=== PATIENT | female | born 1970 | race Caucasian/White ===

== ENCOUNTER 2018-09-17 22:51 | Inpatient (IN) | payer MEDICAID ==
[~2018-09-17] VITALS: Ht 152.4 cm; Wt 84.0 kg
[2018-09-18] MEDS ORDERED: SOD CHLORIDE 0.9% 1,000 ML IV STA (00:28)
[2018-09-18] MEDS ORDERED: morphine 4 MG/ML VIAL IV STA (00:28)
[2018-09-18] MEDS ORDERED: ONDANSETRON 4 MG INJ IV STA (00:28)
[2018-09-18] MEDS ORDERED: ASPI-817 PO (01:48)
[2018-09-18] MEDS ORDERED: KETOROLAC 30 MG INJ IV STA (02:31)
[2018-09-18] MEDS ORDERED: CEFTRIAXONE 1 GM/50 ML (PMX) 50 ML IVPB ONE (03:00)
[2018-09-18] MEDS ORDERED: ONDANSETRON 4 MG INJ IV PRN (04:00)
[2018-09-18] MEDS ORDERED: HYDROCODONE/APAP (5/325) TAB PO PRN ×2 (04:00)
[2018-09-18] MEDS ORDERED: NACL 0.9% 3 ML SYG IV SCH (04:00)
[2018-09-18] MEDS ORDERED: ACETAMINOPHEN 325 MG TAB PO PRN (04:00)
[2018-09-18] MEDS ORDERED: KETOROLAC 30 MG INJ IV PRN (04:00)
[2018-09-18] MEDS: SOD CHLORIDE 0.9% 1,000 ML IV SCH ×3 (04:43→14:57)
--- NOTE | 2018-09-18 06:06 | HP ---
Date/Time of Note Date/Time of Note DATE: 09/18/18 TIME: 05:56 Assessment/Plan VTE Prophylaxis Pharmacological prophylaxis: heparin Lines/Catheters IV Catheter Type (from Nrsg): Saline Lock Assessment/Plan Assessment/Plan 1. Left ureterolithiasis -IV fluid -Pain management -Flomax -Strain urine -Awaiting urology 2. UTI -IV antibiotic -Follow-up urine culture results -See #1 3. Mildly dilated appendix: No positive CT findings to suggest appendicitis -Monitor for now -Surgical consult as needed 4. Left adnexal cyst, measuring 3 cm -Follow-up ultrasound in 2 weeks Result Diagram: 09/18/189 09/18/18 000 Results 24hrs Laboratory Tests Test 09/18/18 00:09 09/18/18 02:15 White Blood Count 15.0 H Red Blood Count 4.80 Hemoglobin 13.2 Hematocrit 39.7 Mean Corpuscular Volume 82.7 Mean Corpuscular Hemoglobin 27.5 L Mean Corpuscular Hemoglobin Concent 33.2 Red Cell Distribution Width 12.6 Platelet Count 273 Mean Platelet Volume 10.3 Immature Granulocytes % 0.700 H Neutrophils % 86.2 H Lymphocytes % 9.0 L Monocytes % 3.5 Eosinophils % 0.2 Basophils % 0.4 Nucleated Red Blood Cells % 0.0 Immature Granulocytes # 0.100 H Neutrophils # 13.0 H Lymphocytes # 1.4 Monocytes # 0.5 Eosinophils # 0.0 Basophils # 0.1 Nucleated Red Blood Cells # 0.0 Sodium Level 137 Potassium Level 4.0 Chloride Level 100 Carbon Dioxide Level 25 Anion Gap 12 Blood Urea Nitrogen 19 Creatinine 0.83 Est Glomerular Filtrat Rate mL/min > 60 Glucose Level 149 Calcium Level 9.3 Total Bilirubin 0.4 Direct Bilirubin 0.00 Indirect Bilirubin 0.4 Aspartate Amino Transf (AST/SGOT) 20 Alanine Aminotransferase (ALT/SGPT) 20 Alkaline Phosphatase 106 Total Protein 7.9 Albumin 4.5 Globulin 3.40 H Albumin/Globulin Ratio 1.32 Lipase 52 Urine Color STRAW Urine Clarity CLEAR Urine pH 7.0 Urine Specific [place] 1.012 Urine Ketones 1+ H Urine Nitrite NEGATIVE Urine Bilirubin NEGATIVE Urine Urobilinogen NEGATIVE Urine Leukocyte Esterase NEGATIVE Urine Microscopic RBC 71 H Urine Microscopic WBC 2 Urine Mucus FEW A Urine Hemoglobin 2+ H Urine Glucose NEGATIVE Urine Total Protein NEGATIVE HPI/ROS Admit Date/Time Admit Date/Time Hx of Present Illness This is a 47-year-old female with a history of nephrolithiasis who presents the ER complaining of right flank pain since yesterday. Also reported associated nausea. When presented to ER, vitals were stable. Lab shows a WBC of 15,000. UA consistent with UTI. CT abdomen/pelvis shows the followin mm distal right ureter stone proximal to the UVJ with moderate to severe secondary signs of urinary tract obstruction. Additional nonobstructing smaller stones within both kidneys. Mildly dilated appendix measuring up to 10 mm although without periappendiceal fat stranding seen to suggest the presence of acute appendicitis. 3.7 cm left adnexal cyst which appears simple by CT, most likely a physiologic cyst. Ultrasound follow-up is recommended in 6-12 weeks to assess for resolution. PMH/Family/Social Past Medical History Medical History: other (See HPI) Medications Current Medications Sodium Chloride 1,000 ml @ 125 mls/hr Q8H IV Last administered on 09/18/18at 04:43; Admin Dose 125 MLS/HR; Start 09/18/18 at 03:50 IV Flush (NS 3 ml) 3 ml PER PROTOCOL IV ; Start 09/18/18 at 04:00 Ondansetron HCl (Zofran Inj) 4 mg Q6H PRN IV NAUSEA/VOMITING; Start 09/18/18 at 04:00 Acetaminophen (Tylenol Tab) 650 mg Q6H PRN PO .PAIN 1-3 OR TEMP; Start 09/18/18 at 04:00 Acetaminophen/ Hydrocodone Bitart ([place] (5/325)) 1 tab Q6H PRN PO .MOD PAIN 4- 6; Start 09/18/18 at 04:00 Acetaminophen/ Hydrocodone Bitart ([place] (5/325)) 2 tab Q6H PRN PO .SEVERE PAIN 7-10; Start 09/18/18 at 04:00 Heparin Sodium (Porcine) (Heparin (5000 Units/1ml)) 5,000 unit Q12 SC ; Start 09/18/18 at 09:00 Ketorolac Tromethamine (Toradol) 30 mg Q6H PRN IV PAIN; Start 09/18/18 at 04:00; Stop 09/21/18 at 03:59 Tamsulosin HCl (Flomax) 0.4 mg Q24H PO ; Start 09/18/18 at 04:00 Ceftriaxone Sodium 50 ml @ 100 mls/hr DAILY IVPB ; Start 09/19/18 at 03:00 Coded Allergies: No Known Allergy (Unverified , 09/18/18) Past Surgical History Past Surgical Hx: other (See HPI) Family History Significant Family History: no pertinent family hx Social History Alcohol Use: none Smoking Status: Never smoker Drug Use: none Exam/Review of Systems Vital Signs Vitals Vital Signs Date Temp Pulse Resp B/P (MAP) Pulse Ox O2 O2 Flow FiO2 Time Delivery Rate 09/18/18 64 14 102/65 96 Room Air 05:47 (77) 09/17/18 98.7 22:53 Exam Constitutional: alert, oriented, well developed Head: normocephalic, atraumatic Eyes: EOMI, PERRL Respiratory: clear to auscultation, normal air movement Cardiovascular: regular rate and rhythm Gastrointestinal: soft, other (Right flank pain) Extremities: normal pulses AIDEN PRETTY MD Sep 18, 2018 06:06
[2018-09-18 08:03] VITALS: BP 118/58; PULSE 74; RESP 18
[2018-09-18] MEDS: TAMSULOSIN (SR) 0.4 MG CAP PO SCH (09:11)
[2018-09-18] MEDS: HEPARIN 5,000 UNIT/1 ML VIAL SC SCH ×2 (09:14→20:47)
[2018-09-18 10:01] VITALS: Ht 152.4 cm; Wt 84.0 kg
--- NOTE | 2018-09-18 12:38 | PN ---
Date/Time of Note Date/Time of Note DATE: 09/18/18 TIME: 12:33 Assessment/Plan VTE Prophylaxis Risk score (from Ns)>0 risk: 1 SCD applied (from [facility] [place]): No SCD contraindicated: other Pharmacological prophylaxis: heparin Lines/Catheters IV [facility] Type [facility]from [facility] Saline Lock Urinary Cath still in place: No Assessment/Plan Hospital Course S: Patient still having some nausea symptoms. No fevers. Waiting to be seen by urology team. O: VS - see below PE: Constitutional: alert, oriented, well developed Head: normocephalic, atraumatic Eyes: EOMI, PERRL Respiratory: clear to auscultation, normal air movement Cardiovascular: regular rate and rhythm Gastrointestinal: soft, other (Right flank pain) Extremities: normal pulses CT abdomen pelvis September 18, 2018: IMPRESSION: 8 mm distal right ureter stone proximal to the UVJ with moderate to severe secondary signs of urinary tract obstruction. Additional nonobstructing smaller stones within both kidneys. Mildly dilated appendix measuring up to 10 mm although without periappendiceal fat stranding seen to suggest the presence of acute appendicitis. 3.7 cm left adnexal cyst which appears simple by CT, most likely a physiologic cyst. Ultrasound follow-up is recommended in 6-12 weeks to assess for resolution. Assessment/Plan: 47-year-old female who presents with: 1. Left ureterolithiasis: This was found on CT scan result. -Continue with IV fluid and pain management, Flomax -Strain urine -Follow-up recommendations from consult urology 2. UTI: Found on UA -For now continue IV antibiotic -Follow-up urine culture results -See #1 3. Mildly dilated appendix: No positive CT findings to suggest appendicitis -Monitor for now -Surgical consult as needed 4. Left adnexal cyst, measuring 3 cm -Follow-up ultrasound in 2 weeks Result Diagram: 09/18/18 0009 09/18/18 0009 Results 24hrs Laboratory Tests Test 09/18/18 00:09 09/18/18 02:15 White Blood Count 15.0 H Red Blood Count 4.80 Hemoglobin 13.2 Hematocrit 39.7 Mean Corpuscular Volume 82.7 Mean Corpuscular Hemoglobin 27.5 L Mean Corpuscular Hemoglobin Concent 33.2 Red Cell Distribution Width 12.6 Platelet Count 273 Mean Platelet Volume 10.3 Immature Granulocytes % 0.700 H Neutrophils % 86.2 H Lymphocytes % 9.0 L Monocytes % 3.5 Eosinophils % 0.2 Basophils % 0.4 Nucleated Red Blood Cells % 0.0 Immature Granulocytes # 0.100 H Neutrophils # 13.0 H Lymphocytes # 1.4 Monocytes # 0.5 Eosinophils # 0.0 Basophils # 0.1 Nucleated Red Blood Cells # 0.0 Sodium Level 137 Potassium Level 4.0 Chloride Level 100 Carbon Dioxide Level 25 Anion Gap 12 Blood Urea Nitrogen 19 Creatinine 0.83 Est Glomerular Filtrat Rate mL/min > 60 Glucose Level 149 Calcium Level 9.3 Total Bilirubin 0.4 Direct Bilirubin 0.00 Indirect Bilirubin 0.4 Aspartate Amino Transf (AST/SGOT) 20 Alanine Aminotransferase (ALT/SGPT) 20 Alkaline Phosphatase 106 Total Protein 7.9 Albumin 4.5 Globulin 3.40 H Albumin/Globulin Ratio 1.32 Lipase 52 Urine Color STRAW Urine Clarity CLEAR Urine pH 7.0 Urine Specific [place] 1.012 Urine Ketones 1+ H Urine Nitrite NEGATIVE Urine Bilirubin NEGATIVE Urine Urobilinogen NEGATIVE Urine Leukocyte Esterase NEGATIVE Urine Microscopic RBC 71 H Urine Microscopic WBC 2 Urine Mucus FEW A Urine Hemoglobin 2+ H Urine Glucose NEGATIVE Urine Total Protein NEGATIVE Exam/Review of Systems Exam Vitals Vital Signs Date Temp Pulse Resp B/P (MAP) Pulse Ox O2 O2 Flow FiO2 Time Delivery Rate 09/18/18 98.4 74 18 118/58 96 Room Air 08:03 (78) Intake and Output 09/17/18 09/17/18 09/18/18 1515:00 23:00 07:00 IntakeIntake Total 1050 ml BalanceBalance 1050 ml Results Results 24hrs Laboratory Tests Test 09/18/18 00:09 09/18/18 02:15 White Blood Count 15.0 H Red Blood Count 4.80 Hemoglobin 13.2 Hematocrit 39.7 Mean Corpuscular Volume 82.7 Mean Corpuscular Hemoglobin 27.5 L Mean Corpuscular Hemoglobin Concent 33.2 Red Cell Distribution Width 12.6 Platelet Count 273 Mean Platelet Volume 10.3 Immature Granulocytes % 0.700 H Neutrophils % 86.2 H Lymphocytes % 9.0 L Monocytes % 3.5 Eosinophils % 0.2 Basophils % 0.4 Nucleated Red Blood Cells % 0.0 Immature Granulocytes # 0.100 H Neutrophils # 13.0 H Lymphocytes # 1.4 Monocytes # 0.5 Eosinophils # 0.0 Basophils # 0.1 Nucleated Red Blood Cells # 0.0 Sodium Level 137 Potassium Level 4.0 Chloride Level 100 Carbon Dioxide Level 25 Anion Gap 12 Blood Urea Nitrogen 19 Creatinine 0.83 Est Glomerular Filtrat Rate mL/min > 60 Glucose Level 149 Calcium Level 9.3 Total Bilirubin 0.4 Direct Bilirubin 0.00 Indirect Bilirubin 0.4 Aspartate Amino Transf (AST/SGOT) 20 Alanine Aminotransferase (ALT/SGPT) 20 Alkaline Phosphatase 106 Total Protein 7.9 Albumin 4.5 Globulin 3.40 H Albumin/Globulin Ratio 1.32 Lipase 52 Urine Color STRAW Urine Clarity CLEAR Urine pH 7.0 Urine Specific [place] 1.012 Urine Ketones 1+ H Urine Nitrite NEGATIVE Urine Bilirubin NEGATIVE Urine Urobilinogen NEGATIVE Urine Leukocyte Esterase NEGATIVE Urine Microscopic RBC 71 H Urine Microscopic WBC 2 Urine Mucus FEW A Urine Hemoglobin 2+ H Urine Glucose NEGATIVE Urine Total Protein NEGATIVE Medications Medication Current Medications Sodium Chloride 1,000 ml @ 125 mls/hr Q8H IV Last administered on 09/18/18at 04:43; Admin Dose 125 MLS/HR; Start 09/18/18 at 03:50 IV Flush (NS 3 ml) 3 ml PER PROTOCOL IV ; Start 09/18/18 at 04:00 Ondansetron HCl (Zofran Inj) 4 mg Q6H PRN IV NAUSEA/VOMITING; Start 09/18/18 at 04:00 Acetaminophen (Tylenol Tab) 650 mg Q6H PRN PO .PAIN 1-3 OR TEMP; Start 09/18/18 at 04:00 Acetaminophen/ Hydrocodone Bitart ([place] (5/325)) 1 tab Q6H PRN PO .MOD PAIN 4- 6; Start 09/18/18 at 04:00 Acetaminophen/ Hydrocodone Bitart ([place] (5/325)) 2 tab Q6H PRN PO .SEVERE PAIN 7-10; Start 09/18/18 at 04:00 Heparin Sodium (Porcine) (Heparin (5000 Units/1ml)) 5,000 unit Q12 SC Last administered on 09/18/18at 09:14; Admin Dose 5,000 UNIT; Start 09/18/18 at 09:00 Ketorolac Tromethamine (Toradol) 30 mg Q6H PRN IV PAIN; Start 09/18/18 at 04:00; Stop 09/21/18 at 03:59 Tamsulosin HCl (Flomax) 0.4 mg Q24H PO Last administered on 09/18/18at 09:11; Admin Dose 0.4 MG; Start 09/18/18 at 04:00 Ceftriaxone Sodium 50 ml @ 100 mls/hr DAILY IVPB ; Start 09/19/18 at 03:00 ESDRAS GAIATN Sep 18, 2018 12:38
[2018-09-18 14:00] VITALS: BP 117/60; PULSE 76; RESP 18
--- NOTE | 2018-09-18 14:55 | CONS ---
Assessment/Plan Assessment/Plan Hospital Course (Demo Recall) 47-year-old female presented to the emergency room was right flank pain radiating toward the genital area associated with nausea and vomiting. She underwent a CT scan of the abdomen and pelvis and that showed an 8mm distal right ureteral stone with obstruction. Patient denies any prior history of kidney stones. Impression: Distal right ureteral stone measuring 8 mm. And bilateral kidney stones, small and nonobstructing Plan: Pain medications, strain the urine, KUB, tamsulosin and antibiotic. If she does not pass the stone we will do cystoscopy, ureteroscopy, laser lithotripsy and insert a JJ stent. I explained that to the patient she was asking if there is a medicine that will dissolve the stone. I told her there is no such medicine. I explained the procedure to her. I will check with her again tomorrow and if she is agreeable we will do the procedure tomorrow evening. Consultation Date/Type/Reason Admit Date/Time September 18, 2018 Date of Consultation: Sep 18, 2018 Type of Consult Urology Reason for Consultation Distal right ureteral stone Requesting Provider: AIDEN PRETTY MD Date/Time of Note DATE: 09/18/18 TIME: 14:47 Hx of Present Illness 47-year-old female presented to the emergency room was right flank pain radiating toward the genital area associated with nausea and vomiting. She underwent a CT scan of the abdomen and pelvis and that showed a distal right ureteral stone with obstruction. Patient denies any prior history of kidney stones. Constitutional: no complaints Eyes: no complaints ENT: no complaints Respiratory: no complaints Cardiovascular: no complaints Gastrointestinal: nausea (On admission), vomiting (On admission) Genitourinary: flank pain (Right side); No dysuria Musculoskeletal: no complaints Skin: no complaints Neurologic: no complaints Endocrine: no complaints Lymphatic: no complaints Psychological: no complaints Immunologic: no complaints Past Medical History Medical History: other (Tubal ligation) Home Meds Reported Medications Aspirin* (Aspirin* EC) 81 Mg Tablet.dr, 81 MG PO DAILY, TAB 09/18/18 Medications Current Medications Sodium Chloride 1,000 ml @ 125 mls/hr Q8H IV Last administered on 09/18/18at 04:43; Admin Dose 125 MLS/HR; Start 09/18/18 at 03:50 IV Flush (NS 3 ml) 3 ml PER PROTOCOL IV ; Start 09/18/18 at 04:00 Ondansetron HCl (Zofran Inj) 4 mg Q6H PRN IV NAUSEA/VOMITING; Start 09/18/18 at 04:00 Acetaminophen (Tylenol Tab) 650 mg Q6H PRN PO .PAIN 1-3 OR TEMP; Start 09/18/18 at 04:00 Acetaminophen/ Hydrocodone Bitart ([place] (5/325)) 1 tab Q6H PRN PO .MOD PAIN 4- 6; Start 09/18/18 at 04:00 Acetaminophen/ Hydrocodone Bitart ([place] (5/325)) 2 tab Q6H PRN PO .SEVERE PAIN 7-10; Start 09/18/18 at 04:00 Heparin Sodium (Porcine) (Heparin (5000 Units/1ml)) 5,000 unit Q12 SC Last administered on 09/18/18at 09:14; Admin Dose 5,000 UNIT; Start 09/18/18 at 09:00 Ketorolac Tromethamine (Toradol) 30 mg Q6H PRN IV PAIN; Start 09/18/18 at 04:00; Stop 09/21/18 at 03:59 Tamsulosin HCl (Flomax) 0.4 mg Q24H PO Last administered on 09/18/18at 09:11; Admin Dose 0.4 MG; Start 09/18/18 at 04:00 Ceftriaxone Sodium 50 ml @ 100 mls/hr DAILY IVPB ; Start 09/19/18 at 03:00 Allergies: Coded Allergies: No Known Allergy (Unverified , 09/18/18) Past Surgical History Past Surgical Hx: other (See HPI) Social History Alcohol Use: none Smoking Status: Never smoker Drug Use: none Other Social History She is a 4, para 3, 1 and 3 normal deliveries Exam/Review of Systems Exam Vitals Vital Signs Date Temp Pulse Resp B/P (MAP) Pulse Ox O2 O2 Flow FiO2 Time Delivery Rate 09/18/18 98.4 74 18 118/58 96 Room Air 08:03 (78) Intake and Output 09/17/18 09/17/18 09/18/18 1515:00 23:00 07:00 IntakeIntake Total 1050 ml BalanceBalance 1050 ml Constitutional: alert, oriented Psych: no complaints Head: normocephalic Eyes: nl conjunctiva ENMT: nl external ears & nose Neck: supple, non-tender Respiratory: normal air movement; No wheezing Cardiovascular: No jugular venous distention (JVD) Gastrointestinal: soft, tender (Right lower quadrant) Genitourinary - Female: CVA tenderness (Right side), other (No pelvic exam was done patient has her periods) Musculoskeletal: nl extremities to inspection Extremities: No calf tenderness Neurological: nl mental status Skin: nl turgor Results Result Diagram: 09/18/18 0009 09/18/18 0009 Results 24hrs Laboratory Tests Test 09/18/18 00:09 09/18/18 02:15 White Blood Count 15.0 H Red Blood Count 4.80 Hemoglobin 13.2 Hematocrit 39.7 Mean Corpuscular Volume 82.7 Mean Corpuscular Hemoglobin 27.5 L Mean Corpuscular Hemoglobin Concent 33.2 Red Cell Distribution Width 12.6 Platelet Count 273 Mean Platelet Volume 10.3 Immature Granulocytes % 0.700 H Neutrophils % 86.2 H Lymphocytes % 9.0 L Monocytes % 3.5 Eosinophils % 0.2 Basophils % 0.4 Nucleated Red Blood Cells % 0.0 Immature Granulocytes # 0.100 H Neutrophils # 13.0 H Lymphocytes # 1.4 Monocytes # 0.5 Eosinophils # 0.0 Basophils # 0.1 Nucleated Red Blood Cells # 0.0 Sodium Level 137 Potassium Level 4.0 Chloride Level 100 Carbon Dioxide Level 25 Anion Gap 12 Blood Urea Nitrogen 19 Creatinine 0.83 Est Glomerular Filtrat Rate mL/min > 60 Glucose Level 149 Calcium Level 9.3 Total Bilirubin 0.4 Direct Bilirubin 0.00 Indirect Bilirubin 0.4 Aspartate Amino Transf (AST/SGOT) 20 Alanine Aminotransferase (ALT/SGPT) 20 Alkaline Phosphatase 106 Total Protein 7.9 Albumin 4.5 Globulin 3.40 H Albumin/Globulin Ratio 1.32 Lipase 52 Urine Color STRAW Urine Clarity CLEAR Urine pH 7.0 Urine Specific [place] 1.012 Urine Ketones 1+ H Urine Nitrite NEGATIVE Urine Bilirubin NEGATIVE Urine Urobilinogen NEGATIVE Urine Leukocyte Esterase NEGATIVE Urine Microscopic RBC 71 H Urine Microscopic WBC 2 Urine Mucus FEW A Urine Hemoglobin 2+ H Urine Glucose NEGATIVE Urine Total Protein NEGATIVE Imaging Imaging CT scan of the abdomen and pelvis: 8 mm distal right ureter stone proximal to the UVJ with moderate to severe secondary signs of urinary tract obstruction. Additional nonobstructing smaller stones within both kidneys. Mildly dilated appendix measuring up to 10 mm although without periappendiceal fat stranding seen to suggest the presence of acute appendicitis. 3.7 cm left adnexal cyst which appears simple by CT, most likely a physiologic cyst. Ultrasound follow-up is recommended in 6-12 weeks to assess for resolution. Medications Medication Current Medications Sodium Chloride 1,000 ml @ 125 mls/hr Q8H IV Last administered on 09/18/18at 04:43; Admin Dose 125 MLS/HR; Start 09/18/18 at 03:50 IV Flush (NS 3 ml) 3 ml PER PROTOCOL IV ; Start 09/18/18 at 04:00 Ondansetron HCl (Zofran Inj) 4 mg Q6H PRN IV NAUSEA/VOMITING; Start 09/18/18 at 04:00 Acetaminophen (Tylenol Tab) 650 mg Q6H PRN PO .PAIN 1-3 OR TEMP; Start 09/18/18 at 04:00 Acetaminophen/ Hydrocodone Bitart ([place] (5/325)) 1 tab Q6H PRN PO .MOD PAIN 4- 6; Start 09/18/18 at 04:00 Acetaminophen/ Hydrocodone Bitart ([place] (5/325)) 2 tab Q6H PRN PO .SEVERE PAIN 7-10; Start 09/18/18 at 04:00 Heparin Sodium (Porcine) (Heparin (5000 Units/1ml)) 5,000 unit Q12 SC Last administered on 09/18/18at 09:14; Admin Dose 5,000 UNIT; Start 09/18/18 at 09:00 Ketorolac Tromethamine (Toradol) 30 mg Q6H PRN IV PAIN; Start 09/18/18 at 04:00; Stop 09/21/18 at 03:59 Tamsulosin HCl (Flomax) 0.4 mg Q24H PO Last administered on 09/18/18at 09:11; Admin Dose 0.4 MG; Start 09/18/18 at 04:00 Ceftriaxone Sodium 50 ml @ 100 mls/hr DAILY IVPB ; Start 09/19/18 at 03:00 HARLAN NOLASCO MD Sep 18, 2018 14:55
--- NOTE | 2018-09-18 16:09 | PREAC ---
Date/Time of Note Date/Time of Note DATE: 09/18/18 TIME: 16:04 Anesthesia Eval and Record Evaluation Time Pre-Procedure Interview DATE: 09/18/18 TIME: 16:04 Age 47 Sex female NPO: Other (INSTRUCTED PATIENT MINIMUM FASTING 8 HOURS BEFORE SURGERY, VERBALIZ ED UNDERSTANDING. ASSIGNED ANESTHESIA PROVIDER TO VERIFY.) Preoperative diagnosis RIGHT FLANK PAIN, RIGHT URETERAL STONE WITH OBSTRUCTION Planned procedure CYSTOSCOPY, RIGHT URETEROSCOPY, LASER LITHOTRIPSY. RIGHT JJ STENT Past Medical History Past Medical History: Includes Renal: Other (BILATERAL KIDNEY STONES) GI: Obesity (BMI 36), Other (CT SCAN: DILATED APPENDIX) Infection(s): Other (CT SCAN: LEFT ADNEXAL CYST) Surgery & Anesthesia Issues Hx of PONV (HX BTL), No known issue Meds Anticoagulation: Yes Beta Vic within 24 hr: No Reason Beta Vic not given: Pt. not on B-Vic Reported Medications Aspirin* (Aspirin* EC) 81 Mg Tablet.dr, 81 MG PO DAILY, TAB 09/18/18 Current Medications Sodium Chloride 1,000 ml @ 125 mls/hr Q8H IV Last administered on 09/18/18at 14:57; Admin Dose 125 MLS/HR; Start 09/18/18 at 03:50 IV Flush (NS 3 ml) 3 ml PER PROTOCOL IV ; Start 09/18/18 at 04:00 Ondansetron HCl (Zofran Inj) 4 mg Q6H PRN IV NAUSEA/VOMITING; Start 09/18/18 at 04:00 Acetaminophen (Tylenol Tab) 650 mg Q6H PRN PO .PAIN 1-3 OR TEMP; Start 09/18/18 at 04:00 Acetaminophen/ Hydrocodone Bitart ([place] (5/325)) 1 tab Q6H PRN PO .MOD PAIN 4- 6; Start 09/18/18 at 04:00 Acetaminophen/ Hydrocodone Bitart ([place] (5/325)) 2 tab Q6H PRN PO .SEVERE PAIN 7-10; Start 09/18/18 at 04:00 Heparin Sodium (Porcine) (Heparin (5000 Units/1ml)) 5,000 unit Q12 SC Last administered on 09/18/18at 09:14; Admin Dose 5,000 UNIT; Start 09/18/18 at 09:00 Ketorolac Tromethamine (Toradol) 30 mg Q6H PRN IV PAIN; Start 09/18/18 at 04:00; Stop 09/21/18 at 03:59 Tamsulosin HCl (Flomax) 0.4 mg Q24H PO Last administered on 09/18/18at 09:11; Admin Dose 0.4 MG; Start 09/18/18 at 04:00 Ceftriaxone Sodium 50 ml @ 100 mls/hr DAILY IVPB ; Start 09/19/18 at 03:00 Meds reviewed: Yes Allergies Coded Allergies: No Known Allergy (Unverified , 09/18/18) Allergies Reviewed: Yes Labs/Studies Labs Reviewed: Reviewed by anesthesiologist Result Diagram: 09/18/18 0009 09/18/18 0009 Laboratory Tests 09/18/18 00:09 test: N/A (PENDING RESULTS, ASSIGNED ANESTHESIA PROVIDER TO VERIFY) Pre-procedure Exam Last vitals Vital Signs Date Temp Pulse Resp B/P (MAP) Pulse Ox O2 O2 Flow FiO2 Time Delivery Rate 09/18/18 98.4 74 18 118/58 96 Room Air 08:03 (78) Airway: Adequate mouth opening, Adequate thyromental dist Mallampati: Mallampati II Teeth: Normal Lung: Normal Heart: Normal ASA Physical Status ASA physical status: 2 Emergency: None Planned Anesthetic General/MAC: LMA Planned Pain Management Parenteral pain med, Local by surgeon Pre-operative Attestations Prior to commencing anesthesia and surgery, the patient was re-evaluated, there was verification of: *The patient's identity *The results of appropriate recent lab work and preoperative vital signs *The above evaluation not changing prior to induction *Anesthetic plan, risk benefits, alternative and complications discussed with patient/family; questions answered; patient/family understands, accepts and wishes to proceed. JASON MOREIRA Sep 18, 2018 16:09
[2018-09-18 20:00] VITALS: BP 112/54; PULSE 68; RESP 17
[2018-09-19] VITALS (17 sets, daily range): BP systolic 100–140; BP diastolic 52–89; PULSE 70–93; RESP 13–21
[2018-09-19] MEDS: SOD CHLORIDE 0.9% 1,000 ML IV SCH ×3 (00:32→21:43)
[2018-09-19] MEDS: CEFTRIAXONE 1 GM/50 ML (PMX) 50 ML IVPB SCH ×2 (03:04→08:53)
[2018-09-19] MEDS ORDERED: DEXAMETHASONE 4 MG/ML 5 ML INJ ONE (07:00)
[2018-09-19] MEDS ORDERED: SEVOFLURANE 15 MIN ONE (07:00)
[2018-09-19] MEDS ORDERED: ONDANSETRON 4 MG INJ ONE (07:00)
[2018-09-19] MEDS ORDERED: LIDOCAINE 2% (SDV) 5 ML INJ ONE (07:00)
[2018-09-19] MEDS: HEPARIN 5,000 UNIT/1 ML VIAL SC SCH (08:53)
[2018-09-19] MEDS: TAMSULOSIN (SR) 0.4 MG CAP PO SCH (08:53)
--- NOTE | 2018-09-19 11:38 | PN ---
Date/Time of Note Date/Time of Note DATE: 09/19/18 TIME: 11:37 Assessment/Plan VTE Prophylaxis Risk score (from Ns)>0 risk: 2 SCD applied (from [facility]): No SCD contraindicated: other Pharmacological prophylaxis: heparin Lines/Catheters IV Catheter Type (from [facility]): Sal[place] Lock Urinary Cath still in place: No Assessment/Plan Hospital Course S: Patient seen by urology team, awaiting cystoscopy for later today. No acute events overnight. O: VS - see below PE: Constitutional: alert, oriented, well developed Head: normocephalic, atraumatic Eyes: EOMI, PERRL Respiratory: clear to auscultation, normal air movement Cardiovascular: regular rate and rhythm Gastrointestinal: soft, other (Right flank pain) Extremities: normal pulses CT abdomen pelvis September 18, 2018: IMPRESSION: 8 mm distal right ureter stone proximal to the UVJ with moderate to severe secondary signs of urinary tract obstruction. Additional nonobstructing smaller stones within both kidneys. Mildly dilated appendix measuring up to 10 mm although without periappendiceal fat stranding seen to suggest the presence of acute appendicitis. 3.7 cm left adnexal cyst which appears simple by CT, most likely a physiologic cyst. Ultrasound follow-up is recommended in 6-12 weeks to assess for resolution. Assessment/Plan: 47-year-old female who presents with: 1. Left ureterolithiasis: This was found on CT scan result. Evaluated by urology team. -Continue with IV fluid and pain management, Flomax -Strain urine, and again going for cystoscopy later today, follow-up post procedure recommendations 2. UTI: Found on UA -For now continue IV antibiotic -Follow-up urine culture results 3. Mildly dilated appendix: No positive CT findings to suggest appendicitis -Monitor for now -Surgical consult as needed 4. Left adnexal cyst, measuring 3 cm -Follow-up ultrasound in 2 weeks Result Diagram: 09/19/1852309/19/1824 Results 24hrs Laboratory Tests Test 09/18/18 15:24 09/19/18 05:24 Prothrombin Time 13.1 Prothrombin Time Ratio 1.0 INR International Normalized Ratio 0.98 Activated Partial Thromboplast Time 32.0 White Blood Count 6.1 # Red Blood Count 4.29 Hemoglobin 11.8 L Hematocrit 36.4 L Mean Corpuscular Volume 84.8 Mean Corpuscular Hemoglobin 27.5 L Mean Corpuscular Hemoglobin Concent 32.4 Red Cell Distribution Width 13.1 Platelet Count 228 Mean Platelet Volume 10.3 Immature Granulocytes % 0.300 Neutrophils % 51.4 Lymphocytes % 39.2 Monocytes % 5.9 Eosinophils % 2.5 Basophils % 0.7 Nucleated Red Blood Cells % 0.0 Immature Granulocytes # 0.020 Neutrophils # 3.1 Lymphocytes # 2.4 Monocytes # 0.4 Eosinophils # 0.2 Basophils # 0.0 Nucleated Red Blood Cells # 0.0 Sodium Level 142 Potassium Level 3.7 Chloride Level 112 H Carbon Dioxide Level 26 Anion Gap 4 #L Blood Urea Nitrogen 7 # Creatinine 0.45 Est Glomerular Filtrat Rate mL/min > 60 Glucose Level 92 # Calcium Level 8.1 L Phosphorus Level 2.4 L Magnesium Level 2.3 Total Bilirubin 0.4 Direct Bilirubin 0.00 Indirect Bilirubin 0.4 Aspartate Amino Transf (AST/SGOT) 16 Alanine Aminotransferase (ALT/SGPT) 21 Alkaline Phosphatase 85 Total Protein 6.3 # Albumin 3.4 # Globulin 2.90 Albumin/Globulin Ratio 1.17 Exam/Review of Systems Exam Vitals Vital Signs Date Temp Pulse Resp B/P (MAP) Pulse Ox O2 O2 Flow FiO2 Time Delivery Rate 09/19/18 98.2 71 16 119/59 94 Room Air 07:40 (79) Intake and Output 09/18/18 09/18/18 09/19/18 1515:00 23:00 07:00 IntakeIntake Total 1000 ml 1175 ml 1300 ml OutputOutput Total 2400 ml 600 ml BalanceBalance 1000 ml -1225 ml 700 ml Results Results 24hrs Laboratory Tests Test 09/18/18 15:24 09/19/18 05:24 Prothrombin Time 13.1 Prothrombin Time Ratio 1.0 INR International Normalized Ratio 0.98 Activated Partial Thromboplast Time 32.0 White Blood Count 6.1 # Red Blood Count 4.29 Hemoglobin 11.8 L Hematocrit 36.4 L Mean Corpuscular Volume 84.8 Mean Corpuscular Hemoglobin 27.5 L Mean Corpuscular Hemoglobin Concent 32.4 Red Cell Distribution Width 13.1 Platelet Count 228 Mean Platelet Volume 10.3 Immature Granulocytes % 0.300 Neutrophils % 51.4 Lymphocytes % 39.2 Monocytes % 5.9 Eosinophils % 2.5 Basophils % 0.7 Nucleated Red Blood Cells % 0.0 Immature Granulocytes # 0.020 Neutrophils # 3.1 Lymphocytes # 2.4 Monocytes # 0.4 Eosinophils # 0.2 Basophils # 0.0 Nucleated Red Blood Cells # 0.0 Sodium Level 142 Potassium Level 3.7 Chloride Level 112 H Carbon Dioxide Level 26 Anion Gap 4 #L Blood Urea Nitrogen 7 # Creatinine 0.45 Est Glomerular Filtrat Rate mL/min > 60 Glucose Level 92 # Calcium Level 8.1 L Phosphorus Level 2.4 L Magnesium Level 2.3 Total Bilirubin 0.4 Direct Bilirubin 0.00 Indirect Bilirubin 0.4 Aspartate Amino Transf (AST/SGOT) 16 Alanine Aminotransferase (ALT/SGPT) 21 Alkaline Phosphatase 85 Total Protein 6.3 # Albumin 3.4 # Globulin 2.90 Albumin/Globulin Ratio 1.17 Medications Medication Current Medications Sodium Chloride 1,000 ml @ 125 mls/hr Q8H IV Last administered on 09/19/18at 10:16; Admin Dose 125 MLS/HR; Start 09/18/18 at 03:50 IV Flush (NS 3 ml) 3 ml PER PROTOCOL IV ; Start 09/18/18 at 04:00 Ondansetron HCl (Zofran Inj) 4 mg Q6H PRN IV NAUSEA/VOMITING; Start 09/18/18 at 04:00 Acetaminophen (Tylenol Tab) 650 mg Q6H PRN PO .PAIN 1-3 OR TEMP; Start 09/18/18 at 04:00 Acetaminophen/ Hydrocodone Bitart ([place] (5/325)) 1 tab Q6H PRN PO .MOD PAIN 4- 6; Start 09/18/18 at 04:00 Acetaminophen/ Hydrocodone Bitart ([place] (5/325)) 2 tab Q6H PRN PO .SEVERE PAIN 7-10; Start 09/18/18 at 04:00 Heparin Sodium (Porcine) (Heparin (5000 Units/1ml)) 5,000 unit Q12 SC Last administered on 09/18/18at 20:47; Admin Dose 5,000 UNIT; Start 09/18/18 at 09:00 Ketorolac Tromethamine (Toradol) 30 mg Q6H PRN IV PAIN; Start 09/18/18 at 04:00; Stop 09/21/18 at 03:59 Tamsulosin HCl (Flomax) 0.4 mg Q24H PO Last administered on 09/18/18at 09:11; Admin Dose 0.4 MG; Start 09/18/18 at 04:00 Ceftriaxone Sodium 50 ml @ 100 mls/hr DAILY IVPB Last administered on 09/19/18at 08:53; Admin Dose 100 MLS/HR; Start 09/19/18 at 03:00 Potassium Phosphate 20 meq/ Sodium Chloride 254.5455 ml @ 63.636 m... ONCE ONCE IVPB ; Start 09/19/18 at 12:00; Stop 09/19/18 at 15:59; Status UNESDRAS GOLDBERG Sep 19, 2018 11:38
[2018-09-19] MEDS ORDERED: POTASSIUM PHOSPHATE 20 MEQ in SOD CHLORIDE 0.9% 250 ML IVPB ONE (13:00)
--- NOTE | 2018-09-19 17:07 | RADRPT ---
Vent Rate: 72 bpm RR Interval: 0 msec FL Interval: 136 msec QRS Duration: 90 msec QT Interval: 422 msec QTC Interval: 462 msec P-R-T [place]: 46 - 66 - 37 degrees Normal sinus rhythm Normal ECG Electronically Signed By: Marco Alvarez
--- NOTE | 2018-09-19 17:39 | HPN ---
Date/Time of Note Date/Time of Note DATE: 09/19/18 TIME: 17:39 Interval H&P Admission Note Pt. seen H&P reviewed: No system changes HARLAN NOLASCO MD Sep 19, 2018 17:39
[2018-09-19] MEDS ORDERED: FENTAnyl 50 MCG/ML VIAL ONE (17:59)
[2018-09-19] MEDS ORDERED: PROPOFOL 20 ML ONE (18:00)
[2018-09-19] MEDS ORDERED: MIDAZOLAM 1 MG/ML 2 ML INJ ONE (18:00)
[2018-09-19] MEDS ORDERED: METOCLOPRAMIDE 10 MG INJ ONE (18:02)
[2018-09-19] MEDS ORDERED: CEFAZOLIN 1 GM INJ ONE (19:58)
--- NOTE | 2018-09-19 20:31 | OPR ---
Date/Time of Note Date/Time of Note DATE: 09/19/18 TIME: 20:26 Operative Report Procedure Date: Sep 19, 2018 Preoperative Diagnosis Distal right ureteral stone Postoperative Diagnosis Same Operation/Procedure Performed Cystoscopy, right ureteroscopy, laser lithotripsy and insertion of right ureteral JJ stent 6 [place] by 22 cm long Surgeon see signature line Canceling And Cutting Control Clerk Jah Lara Anesthesia Type: general Anesthesiologist: TATYANA DALAL MD Estimated Blood Loss: none Transfusion none Specimen Stone fragments from the distal right ureter Grafts/Implants none Complications none Pt Condition Post Procedure: stable Disposition: PACU Indications Distal right ureteral stone with obstruction Procedure Description The patient was brought to the operating room and general anesthesia was induced. The patient received 2 g of Ancef IV at the start of the procedure. Timeout was done and the patient was identified by her name,birthdate and the procedure and the side of the procedure. The patient was then positioned in the lithotomy position and the genital area was prepped and draped in the usual sterile manner. A 21 [place] cystoscope sheath was introduced into the bladder and urine was collected for culture and sensitivity. Right ureteral orifice was identified and then cannulated with a 5 [place] open ended ureteral catheter. A 0.035 zip wire was advanced through the open ended catheter all the way up to the kidney. The open-ended was removed leaving the zip wire in place. The open-ended was then introduced through the second working channel of the scope and the ureteral orifice was cannulated again and a 0.035 sensor wire was passed all the way up to the kidney. The open-ended was removed leaving the sensor wire in place. Then the cystoscope was removed. The sensor wire was used as a safety wire and the zip wire was used to advance the rigid ureteroscope on it into the ureter. The stone was then visualized and broken with the holmium laser into pieces. These pieces were basketed and dropped into the bladder until the ureter was free of stone fragments. The ureteroscope was then removed . Cystoscopy was done again and the stone fragments were drained out of the bladder. Then the cystoscope was reintroduced into the bladder over the safety wire and a 6 [place] by 22 cm long JJ stent was advanced on the sensor wire, had its proximal end curling into the kidney and the distal end curling into the bladder. The distal end is connected to a string that was taped to the patient's right groin. The patient was transferred to recovery room in stable and satisfactory condition HARLAN NOLASCO MD Sep 19, 2018 20:31
[2018-09-20 02:00] VITALS: BP 101/58; PULSE 78; RESP 18
[2018-09-20] MEDS: SOD CHLORIDE 0.9% 1,000 ML IV SCH ×3 (05:56→15:25)
[2018-09-20 07:35] VITALS: BP 105/59; PULSE 70; RESP 16
--- NOTE | 2018-09-20 08:25 | CONS ---
Consult Date/Type/Reason Admit Date/Time Sep 18, 2018 at 02:48 Initial Consult Date 09/18/18 Type of Consultation: Urology Reason for Consultation Distal right ureteral stone Requesting Provider: AIDEN PRETTY MD Date/Time of Note DATE: 09/20/18 TIME: 08:22 Subjective The patient is comfortable and has no pain. She is voiding well and her urine is clear to clear pink Objective Vitals Vital Signs Date Temp Pulse Resp B/P (MAP) Pulse Ox O2 O2 Flow FiO2 Time Delivery Rate 09/20/18 98.3 70 16 105/59 96 Room Air 07:35 (74) 09/19/18 2.0 21:35 Intake and Output 09/19/18 09/19/18 09/20/18 1515:00 23:00 07:00 IntakeIntake Total 925 ml 2254.5455 ml OutputOutput Total 1300 ml 250 ml BalanceBalance -375 ml 2004.5455 ml Exam The abdomen is soft and there is no flank tenderness Results/Medications Result Diagram: 09/20/1822 09/20/18 0622 Results 24 hrs Laboratory Tests Test 09/19/18 14:52 09/20/18 06:22 Urine Test NEGATIVE White Blood Count 8.3 # Red Blood Count 4.36 Hemoglobin 12.0 Hematocrit 36.9 L Mean Corpuscular Volume 84.6 Mean Corpuscular Hemoglobin 27.5 L Mean Corpuscular Hemoglobin Concent 32.5 Red Cell Distribution Width 12.7 Platelet Count 257 Mean Platelet Volume 10.4 Immature Granulocytes % 0.600 H Neutrophils % 84.5 H Lymphocytes % 12.5 L Monocytes % 2.3 Eosinophils % 0.0 Basophils % 0.1 Nucleated Red Blood Cells % 0.0 Immature Granulocytes # 0.050 H Neutrophils # 7.0 Lymphocytes # 1.0 Monocytes # 0.2 L Eosinophils # 0.0 Basophils # 0.0 Nucleated Red Blood Cells # 0.0 Sodium Level 140 Potassium Level 4.2 Chloride Level 107 Carbon Dioxide Level 21 Anion Gap 12 # Blood Urea Nitrogen 8 Creatinine 0.41 L Est Glomerular Filtrat Rate mL/min > 60 Glucose Level 88 Calcium Level 8.5 Phosphorus Level 3.4 Magnesium Level 2.1 Home Meds Reported Medications Aspirin* (Aspirin* EC) 81 Mg Tablet.dr, 81 MG PO DAILY, TAB 4/10/19 Medications Current Medications Sodium Chloride 1,000 ml @ 125 mls/hr Q8H IV Last administered on 09/20/18at 05:56; Admin Dose 125 MLS/HR; Start 09/18/18 at 03:50 IV Flush (NS 3 ml) 3 ml PER PROTOCOL IV ; Start 09/18/18 at 04:00 Ondansetron HCl (Zofran Inj) 4 mg Q6H PRN IV NAUSEA/VOMITING; Start 09/18/18 at 04:00 Acetaminophen (Tylenol Tab) 650 mg Q6H PRN PO .PAIN 1-3 OR TEMP Last administered on 09/20/18at 05:58; Admin Dose 650 MG; Start 09/18/18 at 04:00 Acetaminophen/ Hydrocodone Bitart ([place] (5/325)) 1 tab Q6H PRN PO .MOD PAIN 4- 6; Start 09/18/18 at 04:00 Acetaminophen/ Hydrocodone Bitart ([place] (5/325)) 2 tab Q6H PRN PO .SEVERE PAIN 7-10; Start 09/18/18 at 04:00 Ketorolac Tromethamine (Toradol) 30 mg Q6H PRN IV PAIN; Start 09/18/18 at 04:00; Stop 09/21/18 at 03:59 Ceftriaxone Sodium 50 ml @ 100 mls/hr DAILY IVPB Last administered on 09/19/18at 08:53; Admin Dose 100 MLS/HR; Start 09/19/18 at 03:00 Assessment/Plan Hospital Course (Demo Recall) 47-year-old female underwent cystoscopy, right ureteroscopy, laser lithotripsy and insertion of right ureteral JJ stent on 09/19/2018. She is doing well this morning and her pain is minimal. She may be discharged home and she was instructed to call my office and make an appointment for Sunday to remove the JJ stent. I gave her my card with my address and phone number on it. I also instructed her not to pull on the black string taped to her right groin and no shower until we take the stent out. HARLAN NOLASCO MD Sep 20, 2018 08:25
[2018-09-20] MEDS: CEFTRIAXONE 1 GM/50 ML (PMX) 50 ML IVPB SCH (08:44)
[2018-09-20 14:31] VITALS: BP 105/58; PULSE 72; RESP 16
--- NOTE | 2018-09-20 15:39 | PDOCDIS ---
Discharge Instructions CONDITION [id number] Patient Condition: [id number] Stable HOME CARE INSTRUCTIONS: [id number] Diet Instructions: [id number] Regular ACTIVITY: [id number] Activity Restrictions: [id number] Slowly Increase Activity Rest between Activity Avoid heavy lifting FOLLOW UP/APPOINTMENTS Follow-up Plan Please take your medications as prescribed, see your doctor in the clinic in the next few days. ESDRAS GAITAN Sep 20, 2018 15:39
[2018-09-20] MEDS ORDERED: LEVO250T9 PO (15:40)
[2018-09-20] MEDS ORDERED: HYDR-3601 PO (15:40)
--- NOTE | 2018-09-20 15:45 | DS ---
Date/Time of Note Date/Time of Note DATE: 09/20/18 TIME: 15:41 Discharge Summary Admission/Discharge Info Admit Date/Time Sep 18, 2018 at 02:48 Discharge Date/Time Discharge Diagnosis 1. Left ureterolithiasis: This was found on CT scan result. Status post cys toscopy procedure with removal 2. Simple UTI 3. Mildly dilated appendix: No positive CT findings to suggest appendicitis 4. Left adnexal cyst, measuring 3 [id number] ultrasound in 2 weeks Patient Condition: Stable Procedures A. CT abdomen pelvis September 18, 2018: IMPRESSION: 8 mm distal right ureter stone proximal to the UVJ with moderate to severe secondary signs of urinary tract obstruction. Additional nonobstructing smaller stones within both kidneys. Mildly dilated appendix measuring up to 10 mm although without periappendiceal fat stranding seen to suggest the presence of acute appendicitis. 3.7 cm left adnexal cyst which appears simple by CT, most likely a physiologic cyst. Ultrasound follow-up is recommended in 6-12 weeks to assess for resolution. B. Date/Time of Note Date/Time of Note DATE: 09/19/18 TIME: 20:26 Operative Report Procedure Date: Sep 19, 2018 Preoperative Diagnosis Distal right ureteral stone Postoperative Diagnosis Same Operation/Procedure Performed Cystoscopy, right ureteroscopy, laser lithotripsy and insertion of right ureteral JJ stent 6 [place] by 22 cm long Hx of Present Illness 47-year-old female with a history of nephrolithiasis who presents the ER compla ining of right flank pain since yesterday. Also reported associated nausea. When presented to ER, vitals were stable. Lab shows a WBC of 15,000. UA consistent with UTI. CT abdomen/pelvis shows the followin mm distal right ureter stone proximal to the UVJ with moderate to severe secondary signs of urinary tract obstruction. Additional nonobstructing smaller stones within both kidneys. Mildly dilated appendix measuring up to 10 mm although without periappendiceal fat stranding seen to suggest the presence of acute appendicitis. 3.7 cm left adnexal cyst which appears simple by CT, most likely a physiologic cyst. Ultrasound follow-up is recommended in 6-12 weeks to assess for resolution. Hospital Course Patient was admitted and again found with a millimeter distal right ureter stone proximal to the UVJ with signs of urinary tract obstruction. Patient was placed on IV fluids, pain control medications, antiemetics, and antibiotics. She was also treated for simple UTI. Patient had no fevers, white blood cell count trended down to the normal range in the first 24 hours of her hospital stay. Culture results did not show any significant growth. Although urine culture did show growth of mixed organisms. Again no fevers. Patient underwent cystoscopy procedure had a stone removed. She tolerated the procedure well, after which she was able to ambulate, tolerated p.o. diet, vital signs and labs were stable. After getting clearance from organizational effectiveness consultant teams she will be discharged home today improved condition. She will follow-up with urology team in the clinic in the next few days to have her JJ stent removed. See below for full list of discharge medications. Home Meds Active Scripts Levofloxacin* (Levofloxacin*) 250 Mg Tablet, 250 MG PO DAILY for 3 Days, TAB Prov:ESDRAS GAITAN. 09/20/18 Hydrocodone Bit-Acetaminophen (Hydrocodone Bit-APAP) 5-325MG Tablet, 1 TAB PO Q6H PRN for .MOD PAIN 4-6, #14 TAB Prov:ESDRAS GAITAN. 09/20/18 Reported Medications Aspirin* (Aspirin* EC) 81 Mg Tablet., 81 MG PO DAILY, TAB 09/18/18 Follow-up Plan Please take your medications as prescribed, see your doctor in the clinic in the next few days. Primary Care Provider Not On Staff Doctor Time spent on discharge: > 30 minutes Pending Labs Laboratory Tests Test 09/20/18 06:22 White Blood Count 8.3 10^3/ul (4.8-10.8) Red Blood Count 4.36 10^6/ul (4.20-5.40) Hemoglobin 12.0 g/dl (12.0-16.0) Hematocrit 36.9 % (37.0-47.0) Mean Corpuscular Volume 84.6 fl (82.0-101.0) Mean Corpuscular Hemoglobin 27.5 pg (29.0-33.0) Mean Corpuscular Hemoglobin Concent 32.5 g/dl (32.0-37.0) Red Cell Distribution Width 12.7 % (11.5-14.5) Platelet Count 257 10^3/UL (140-415) Mean Platelet Volume 10.4 fl (7.4-10.4) Immature Granulocytes % 0.600 % (0.001-0.429) Neutrophils % 84.5 % (39.0-77.0) Lymphocytes % 12.5 % (15.0-51.0) Monocytes % 2.3 % (0.0-11.0) Eosinophils % 0.0 % (0.0-7.0) Basophils % 0.1 % (0.0-2.0) Nucleated Red Blood Cells % 0.0 /100WBC (0.0-0.0) Immature Granulocytes # 0.050 10^3/ul (0.0-0.031) Neutrophils # 7.0 10^3/ul (1.6-7.5) Lymphocytes # 1.0 10^3/ul (0.8-2.9) Monocytes # 0.2 10^3/ul (0.3-0.9) Eosinophils # 0.0 10^3/ul (0.0-0.5) Basophils # 0.0 10^3/ul (0.0-0.1) Nucleated Red Blood Cells # 0.0 10^3/ul (0.0-0.0) Sodium Level 140 mmol/L (135-144) Potassium Level 4.2 mmol/L (3.5-5.1) Chloride Level 107 mmol/L (97-110) Carbon Dioxide Level 21 mmol/L (21-31) Anion Gap 12 (5-13) Blood Urea Nitrogen 8 mg/dl (7-20) Creatinine 0.41 mg/dl (0.44-1.00) Est Glomerular Filtrat Rate mL/min > 60 mL/min (>60) Glucose Level 88 mg/dl (70-220) Calcium Level 8.5 mg/dl (8.4-10.2) Phosphorus Level 3.4 mg/dl (2.5-4.9) Magnesium Level 2.1 mg/dl (1.7-2.5) Microbiology Date/Time Source Procedure Growth Status 09/19/18 19:45 Cystobladder Urine Culture - Preliminary NO GROWTH Resulted AFTER 24 HOURS ESDRAS GAITAN Sep 20, 2018 15:45
--- NOTE | 2018-09-20 16:15 | PAC ---
Date/Time of Note Date/Time of Note DATE: 09/20/18 TIME: 16:15 Post-Anesthesia Notes Post-Anesthesia Note Last documented vital signs Vital Signs Date Temp Pulse Resp B/P (MAP) Pulse Ox O2 O2 Flow FiO2 Time Delivery Rate 09/20/18 98.0 72 16 105/58 96 Room Air 14:31 (74) 09/19/18 2.0 21:35 Activity: WNL Respiratory function: WNL Cardiovascular function: WNL Mental status: Baseline Pain reasonably controlled: Yes Hydration appropriate: Yes Nausea/Vomiting absent: Yes TATYANA DALAL MD Sep 20, 2018 16:15
== END 2018-09-20 18:30 | disposition home or self-care (01) | DRG 660 ==
LOC: E/R 22:51 → PP2 09-18 02:48
PROVIDERS: ADMIT Internal Medicine; ATTEND Hospitalist
PROC: 0TC68ZZ Extirpation of Matter from Right Ureter, Via Natural or Artificial Opening Endoscopic (ICD-10-PCS; 2018-09-19)
PROC: 0T9B8ZX Drainage of Bladder, Via Natural or Artificial Opening Endoscopic, Diagnostic (ICD-10-PCS; 2018-09-19)
PROC: 0T768DZ Dilation of Right Ureter with Intraluminal Device, Via Natural or Artificial Opening Endoscopic (ICD-10-PCS; principal; 2018-09-19 19:00)
DX: N20.2 Calculus of kidney with calculus of ureter (principal); N39.0 Urinary tract infection, site not specified; N83.8 Other noninflammatory disorders of ovary, fallopian tube and broad ligament; E66.9 Obesity, unspecified; Z68.36 Body mass index [BMI] 36.0-36.9, adult
CPT/HCPCS: 71045; 74018; 74176; 74430; 80048; 80053; 81001; 83690; 83735; 84100; 84703; 85025; 85610; 85730; 87086; 88300; 93005; C2617; J0690; J0696; J1100; J1644; J1885; J2250; J2270; J2405; J2765; J3010; J7030; J7050